=== PATIENT | male | born 1965 | race African-American/Black ===

== ENCOUNTER 2021-03-30 18:39 | Emergency (ER) | payer OTHER ==
[2021-03-30] MEDS ORDERED: Fentanyl 100 MCG/2 ML VIAL ONE (18:55)
[2021-03-30 19:00] LABS: Hemoglobin 12.6 g/dL (14.0-18.0); Mean Corpuscular HGB CONC 32.6 g/dL (32.0-36.0); Mean Corpuscular Hemoglobin 35.7 pg (27.0-31.0); Mean Platelet Volume 7.4 fL (7.4-10.4); Platelet Count 156 thou/uL (130-400); RBC Distribution Width 12.3 % (11.5-14.5); Red Blood Cell (RBC) Count 3.52 mill/uL (4.70-6.10)
[2021-03-30] MEDS ORDERED: Fentanyl CADD 100 ML IV SCH (19:00)
[2021-03-30] MEDS ORDERED: Lidocaine 1% (PF) 30 ML VIAL ONE (19:08)
[2021-03-30] MEDS ORDERED: Heparin 0 ML ONE (19:08)
[2021-03-30] MEDS ORDERED: Heparin 10,000 UNITS/ 10 ML VIAL ONE (19:08)
[2021-03-30 19:14] LABS: Band 3 % (5-11); INR-International Normal Ratio 2.2; Lymphocytes 62 % (21-51); MDiff Complete? YES; Macrocytosis SLIGHT = 6-15 cells (100X) (0-5/hpf); Metamyelocyte 1 % (0-0); Monocytes 3 % (0-10); Neutrophil 31 % (42-75); Nucleated RBC 16 % (0); Platelet Morphology Comment Appears Adequate; Polychromasia SLIGHT = 2-3 cells (100X) (0-2/hpf); Prothrombin Time 24.9 sec (12.0-14.7); Vacuoles SLIGHT; White Blood Cell (WBC) Count 2.8 thou/uL (4.8-10.8)
[2021-03-30 19:15] LABS: PTT 108.1 sec (22.9-36.1)
[2021-03-30 19:19] LABS: ALT (SGPT) 36 U/L (8-55); AST (SGOT) 321 U/L (5-34); Albumin 2.5 g/dL (3.5-5.0); Alcohol 116 mg/dL (Less than 10); Alkaline Phosphatase 153 U/L (40-110); Anion Gap 32 mmol/L (10-20); BUN (Urea Nitrogen) 5 mg/dL (8.4-25.7); Bilirubin, Total 4.1 mg/dL (0.2-1.2); CK (CPK) 625 U/L (30-200); Calc. Creatinine Clearance 0 mL/min (70-130); Calcium 8.2 mg/dL (7.8-10.44); Carbon Dioxide 14 mmol/L (22-29); Chloride 90 mmol/L (98-107); Globulin 4.7 g/dL (2.4-3.5); Glucose 68 mg/dL (70-105); Magnesium 1.3 mg/dL (1.6-2.6); Protein, Total 7.2 g/dL (6.0-8.3); Sodium 134 mmol/L (136-145)
[2021-03-30 19:24] LABS: Potassium 2.3 mmol/L (3.5-5.1)
[2021-03-30 19:28] LABS: Actual Bicarbonate (HCO3a) 14.7 mEq/L (22-28); Analyzer IN Cardio ER; Base Excess (BEa) -13.9 mEq/L (-2.0 to +3.0); Calcium, Ionized (arterial) 0.98 mmol/L (1.12-1.30); Carboxyhemoglobin (COHb) 0.4 gm% (0.0-3.0); O2 Tension (PaO2), arterial 96.4 mmHg (80.0-100.0); Potassium - ABG Lab 2.27 mmol/L (3.70-5.30)
[2021-03-30] MEDS ORDERED: Hydrocortisone Sod Succ/PF 100 mg/2 ml Vial IVP SCH (19:30)
[2021-03-30] MEDS ORDERED: EPINEPHrine 1 MG/ML VIAL ONE (19:33)
[2021-03-30 19:42] LABS: CKMB 3.5 ng/mL (0-6.6)
[2021-03-30] MEDS ORDERED: Cefepime 2 GM VIAL ONE (19:43)
[2021-03-30] MEDS ORDERED: Magnesium 2 GM/50 ML BAG (IN WATER) ONE (19:43)
[2021-03-30] MEDS ORDERED: Potassium Chloride 20 MEQ/100 ML PREMIX BAG ONE (19:48)
[2021-03-30] MEDS ORDERED: Calcium Chloride 1 GM/10 ML Abboject SYRINGE ONE (19:51)
[2021-03-30] MEDS ORDERED: NS 0.9% w/ 40 MEQ KCL 1,000 ML IV SCH (20:00)
[2021-03-30 20:19] LABS: Puncture Site RBA; pH, Arterial 7.13 (7.35-7.45)
[2021-03-30 20:31] LABS: Actual Bicarbonate (HCO3a) 11.1 mEq/L (22-28); Analyzer IN Cardio ER; Base Excess (BEa) -16.2 mEq/L (-2.0 to +3.0); CO2 Tension 31.4 mmHg (35.0-45.0); Calcium, Ionized (arterial) 1.08 mmol/L (1.12-1.30); Carboxyhemoglobin (COHb) 0.3 gm% (0.0-3.0); Hemoglobin (Hb) 11.8 g/dL (14.0-18.0); O2 Tension (PaO2), arterial 150.2 mmHg (80.0-100.0); Potassium - ABG Lab 2.46 mmol/L (3.70-5.30)
[2021-03-30] MEDS ORDERED: Norepinephrine 8 MG/0.9% NS 250 ML ONE (22:05)
[2021-03-30 22:22] LABS: Puncture Site RBA; pH, Arterial 7.17 (7.35-7.45)
[2021-03-30] MEDS ORDERED: Norepinephrine 8 MG/0.9% NS 250 ML IVPB PRN (22:44)
[2021-03-30] MEDS ORDERED: Sodium Chloride 0.9% 1,000 ML IV SCH (22:45)
[2021-03-30] MEDS ORDERED: Acetaminophen 650 MG Suppository PR PRN (22:47)
[2021-03-30 22:57] LABS: SARS-CoV-2 NAA Rapid Test Not Detected (NotDetected)
[2021-03-30] MEDS ORDERED: EPINEPHrine 4 MG in Dextrose 5% in Water 250 ML IV SCH (23:00)
== END 2021-03-30 22:22 | disposition expired ==
LOC: EDBD 18:39 → ERS 18:39
DX: I46.9 Cardiac arrest, cause unspecified (principal); E87.6 Hypokalemia; J96.90 Respiratory failure, unspecified, unspecified whether with hypoxia or hypercapnia; I95.89 Other hypotension
CPT/HCPCS: 36415; 36430; 36556; 36600; 71045; 80053; 80307; 82550; 82553; 82805; 83605; 83735; 84484; 85025; 85610; 85730; 86850; 86900; 86901; 87040; 87077; 87186; 92950; 93005; 94002; 96365; 96366; 96368; 96375; 99292; J0171; J0692; J1644; J2001; J3010; J3475; J3480; P9016; U0002; U0005